=== PATIENT | female | born 1970 | race African-American/Black ===

== ENCOUNTER 2023-12-10 10:45 | Observation (INO) | payer BC, OTHER ==
[2023-12-10] MEDS ORDERED: Vancomycin 1 GM VIAL ONE (10:53)
[2023-12-10] MEDS ORDERED: PROPOFOL 0 ML ONE (11:01)
[2023-12-10] MEDS ORDERED: fentaNYL PF 100 MCG/2 ML SYRINGE ONE (11:01)
[2023-12-10 11:03] LABS: #Eosinphils 0.1 thou/uL (0.0-0.7); #Monocytes 0.5 thou/uL (0.11-0.59); #Neutrophils 4.1 thou/uL (1.40-6.50); %Basophils 0.4 % (0.0-1.0); %Eosinophils 1.2 % (0.0-10.0); %Lymphocytes 35.2 % (21.0-51.0); %Monocytes 6.7 % (0.0-10.0); %Neutrophils 56.2 % (42.0-75.0); Hematocrit 41.5 % (36.0-47.0); Hemoglobin 13.4 g/dL (12.0-16.0); Mean Corpuscular HGB CONC 32.3 g/dL (32.0-36.0); Mean Corpuscular Hemoglobin 28.8 pg (27.0-31.0); Mean Corpuscular Volume 89.2 fl (78.0-98.0); Mean Platelet Volume 10.5 fL (7.4-10.4); Platelet Count 272 10x3/uL (130-400); RBC Distribution Width 13.1 % (11.5-14.5); Red Blood Cell (RBC) Count 4.65 mill/uL (4.20-5.40); White Blood Cell (WBC) Count 7.3 10x3/uL (4.8-10.8)
[2023-12-10] MEDS ORDERED: Lidocaine 1% PF 5 ML VIAL ONE (11:04)
[2023-12-10] MEDS ORDERED: Rocuronium Bromide 10 MG/ML (10ML VIAL) ONE (11:04)
[2023-12-10] MEDS ORDERED: Clindamycin/D5W 900 mg/50 ml Premix Bag ONE (11:16)
[2023-12-10] MEDS ORDERED: LevoFLOXacin D5W 500 mg (100 mL) BAG ONE (11:16)
[2023-12-10 11:51] LABS: Anion Gap 12 mmol/L (10-20); BUN (Urea Nitrogen) 11 mg/dL (9.8-20.1); Calc. Creatinine Clearance 149 mL/min (70-130); Calcium 9.5 mg/dL (7.8-10.44); Carbon Dioxide 26 mmol/L (22-29); Chloride 104 mmol/L (98-107); Estimated GFR 99; Glucose 98 mg/dL (70-105); Potassium 3.8 mmol/L (3.5-5.1); Sodium 138 mmol/L (136-145)
[2023-12-10] MEDS ORDERED: ePHEDrine Sulfate 50 MG/10 ML VIAL ONE (12:16)
[2023-12-10] MEDS ORDERED: Ondansetron PF 4 MG/2 ML Vial ONE ×2 (12:23→13:31)
[2023-12-10] MEDS ORDERED: Ketorolac Tromethamine 30 MG (1 mL) VIAL ONE (12:23)
[2023-12-10] MEDS ORDERED: Dexamethasone 4 mg/ml Vial ONE (12:23)
[2023-12-10] MEDS ORDERED: Promethazine HCl 25 MG/ML VIAL IM PRN (12:27)
[2023-12-10] MEDS ORDERED: HYDROmorphone 2 MG/ML VIAL SLOW IVP PRN (12:27)
[2023-12-10] MEDS ORDERED: Ondansetron HCl/PF 4 MG/2 ML Vial IVP PRN (12:27)
[2023-12-10] MEDS ORDERED: SUGAMMADEX SODIUM 200 MG/2 ML VIAL ONE (12:31)
[2023-12-10] MEDS ORDERED: PROPOFOL 20 ML ONE (12:51)
[2023-12-10] MEDS ORDERED: Cyclobenzaprine 10 MG TAB PO PRN (12:54)
[2023-12-10] MEDS ORDERED: Ondansetron PF 4 MG/2 ML Vial IVP PRN (12:54)
[2023-12-10] MEDS ORDERED: Acetaminophen 650 MG Suppository PR PRN (12:54)
[2023-12-10] MEDS ORDERED: traMADol HCl 50 MG TAB PO PRN (12:54)
[2023-12-10] MEDS ORDERED: Albuterol 2.5 MG (3 mL) NEB NEB PRN (12:56)
[2023-12-10] MEDS ORDERED: HYDROmorphone 0.5 MG/0.5 ML SYRINGE ONE ×3 (13:15→13:48)
[2023-12-10 15:36] VITALS: BMI 43.4
[2023-12-10] MEDS: Promethazine 25 MG TAB PO PRN ×2 (15:59→20:28)
[2023-12-10] MEDS: fentaNYL 50 mcg/mL 1 mL Vial SLOW IVP PRN ×2 (16:00→23:25)
[2023-12-10] MEDS: Gabapentin 300 MG CAP PO SCH ×2 (16:00→20:13)
[2023-12-10] MEDS: Sodium Chloride 0.9% 1,000 ML IV SCH (16:03)
[2023-12-10] MEDS: traMADol HCl 50 MG TAB PO PRN (20:12)
[2023-12-10] MEDS: Clindamycin/D5W 600 MG in Premix 1 BAG IVPB SCH (20:14)
[2023-12-11] MEDS: traMADol HCl 50 MG TAB PO PRN ×2 (04:02→10:55)
[2023-12-11] MEDS: Sodium Chloride 0.9% 1,000 ML IV SCH (04:03)
[2023-12-11] MEDS: Clindamycin/D5W 600 MG in Premix 1 BAG IVPB SCH (04:03)
[2023-12-11] MEDS ORDERED: Levothyroxine 150 MCG TAB PO SCH (06:00)
[2023-12-11] MEDS ORDERED: Furosemide 40 MG TAB PO SCH (07:30)
[2023-12-11] MEDS ORDERED: Losartan 25 MG TAB PO SCH (09:00)
[2023-12-11] MEDS: Gabapentin 300 MG CAP PO SCH (09:52)
[2023-12-11 11:29] VITALS: BP 101/65; TEMP 98.6
== END 2023-12-11 13:30 | disposition home or self-care (01) ==
LOC: SDC 10:45 → SJJU 12:54
PROVIDERS: ADMIT Neurological Surgery; ATTEND Neurological Surgery
PROC: 0SG30K1 Fusion of Lumbosacral Joint with Nonautologous Tissue Substitute, Posterior Approach, Posterior Column, Open Approach (ICD-10-PCS; principal; 2023-12-10)
DX: M51.16 Intervertebral disc disorders with radiculopathy, lumbar region (principal); Z88.5 Allergy status to narcotic agent; Z88.8 Allergy status to other drugs, medicaments and biological substances; Z88.0 Allergy status to penicillin
CPT/HCPCS: 80048; 85025; 93005; 93010; C1713; C1889; J1100; J1170; J1885; J1956; J2405; J2704; J3010; J3370; J3490; J7050; Q0169